=== PATIENT | male | born 1965 | race Caucasian/White ===

== ENCOUNTER 2017-01-03 07:33 | Inpatient (IN) | payer OTHER ==
[~2017-01-03] VITALS: Ht 185.4 cm; Wt 78.3 kg
[2017-01-03] VITALS (426 sets, daily range): BP systolic 109–136; BP diastolic 63–86; PULSE 83–109; TEMP 97.5–98.4; O2SAT 98–100
[2017-01-03 07:59] LABS: BASO # 0.1 (0.0-0.2); BASO % 1.3 % (0.0-2.0); EOS # 0.2 (0.0-0.7); GRAN # 6.3 (1.4-6.5); GRAN % 65.8 % (42.2-75.2); HEMATOCRIT 48.7 % (42.0-52.0); HEMOGLOBIN 17.3 g/dl (13.5-18.0); LYMPH # 2.4 (1.2-3.4); LYMPH % 25.1 % (20.0-51.0); MEAN CELL VOLUME 84 fl (80.0-100.0); MEAN CORPUSCULAR HEMOGLOBIN 30 pg (27.0-31.0); MEAN CORPUSCULAR HGB CONC 36 g/dl (33.0-37.0); MONO # 0.5 (0.1-0.6); MONO % 5.6 % (1.7-9.3); PLATELET COUNT 256 K/mm3 (130-400); RED BLOOD COUNT 5.82 M/mm3 (4.20-5.60); REDCELL DISTRIBUTION WIDTH-CV 12.5 % (11.5-14.5); WHITE BLOOD COUNT 9.6 K/mm3 (4.8-10.8)
[2017-01-03 08:17] LABS: ADJUSTED CALCIUM 9.2 mg/dL (8.4-10.2); ALANINE AMINOTRANSFERASE 28 U/L (21-72); ALBUMIN 4.4 gm/dL (3.5-5.0); ALKALINE PHOSPHATASE 64 U/L (50-136); ANION GAP 21 mmol/L (7-16); BILIRUBIN,TOTAL 1.3 mg/dL (0.0-1.0); BLOOD UREA NITROGEN 26 mg/dL (9-20); CALCIUM 9.5 mg/dL (8.4-10.2); CARBON DIOXIDE 18 mmol/L (22-30); CHLORIDE 93 mmol/L (98-107); CREATININE, serum 0.81 mg/dL (0.66-1.25); MAGNESIUM 1.7 mg/dL (1.6-2.3); PHOSPHOROUS 3.1 mg/dL (2.5-4.5); POTASSIUM 3.9 mmol/L (3.4-5.0); SODIUM 133 mmol/L (137-145); TOTAL PROTEIN 7.1 gm/dL (6.4-8.2)
[2017-01-03 08:18] LABS: ARTERIAL BLD GAS O2 SATURATION 96.5 % (92-100); ARTERIAL BLD GAS TCO2 CT 17.1; ARTERIAL BLOOD GAS HCO3 16.3 meq/L (22-26); ARTERIAL BLOOD GAS PO2 93.7 mmHg (80-100); ARTERIAL BLOOD GAS pH 7.38 (7.35-7.45); OXYHEMOGLOBIN 93.5 %
[2017-01-03 08:19] LABS: ALLEN TEST YES; ALLENS TEST RESULT PASS; ATS? YES
[2017-01-03 08:20] LABS: GLUCOSE 606 mg/dL (74-106)
[2017-01-03 08:28] LABS: B-TYPE NATRIURETIC PEPTIDE 924 pg/mL (0-125)
[2017-01-03 08:33] LABS: TROPONIN-I < 0.012 ng/mL (0.000-0.034)
[2017-01-03 09:42] LABS: PH 5 (5-8); SQUAMOUS EPITHELIAL 0-2 /hpf; URINE APPEARANCE Clear; URINE BACTERIA None Seen /hpf; URINE BILIRUBIN Negative (NEGATIVE); URINE BLOOD Negative (NEGATIVE); URINE COLOR Yellow; URINE GLUCOSE 3+ (NEGATIVE); URINE KETONE 1+ (NEGATIVE); URINE RBC 0-2 /hpf; URINE UROBILINOGEN Negative (NEGATIVE); URINE WBC 0-2 /hpf
[2017-01-03 11:28] LABS: CALCIUM 8.7 mg/dL (8.4-10.2); CREATININE, serum 0.68 mg/dL (0.66-1.25); POTASSIUM 4.2 mmol/L (3.4-5.0)
[2017-01-03 14:11] LABS: CALCIUM 8.2 mg/dL (8.4-10.2); CREATININE, serum 0.66 mg/dL (0.66-1.25); POTASSIUM 3.9 mmol/L (3.4-5.0)
[2017-01-03 16:16] LABS: CREATININE, serum 0.65 mg/dL (0.66-1.25); POTASSIUM 3.8 mmol/L (3.4-5.0)
[2017-01-03 20:45] LABS: AMPHETAMINE URINE NEGATIVE; BARBITURATES URINE NEGATIVE; BENZODIAZEPINES URINE NEGATIVE; BUPRENORPHINE URINE NEGATIVE; METHADONE URINE NEGATIVE; OPIATES URINE NEGATIVE; OXYCODONE URINE NEGATIVE; PHENCYCLIDINE URINE NEGATIVE; PROPOXYPHENE URINE NEGATIVE
[2017-01-03 20:46] LABS: THC CANNABINOIDS URINE NEGATIVE
[2017-01-04 03:17] VITALS: BP 151/87; PULSE 83; TEMP 98.5
[2017-01-04 08:06] VITALS: BP 140/90; PULSE 91; TEMP 98.6
[2017-01-04 11:22] VITALS: BP 158/90; PULSE 90; TEMP 98.3
[2017-01-04] MEDS ORDERED: GLUCOPHAGE500 MG/TAB PO (12:47)
[2017-01-04] MEDS ORDERED: LEVEMIR100 U/ML SQ (12:48)
== END 2017-01-04 14:13 | disposition home or self-care (01) | DRG 638 ==
LOC: COL.ER 07:33 → ICU 08:56 → MEDICAL 08:56
PROVIDERS: Emergency Medicine; Internal Medicine
DX: E13.10 Other specified diabetes mellitus with ketoacidosis without coma (principal); I47.1 Supraventricular tachycardia; E87.1 Hypo-osmolality and hyponatremia; Z66 Do not resuscitate; F17.210 Nicotine dependence, cigarettes, uncomplicated; E11.40 Type 2 diabetes mellitus with diabetic neuropathy, unspecified
CPT/HCPCS: 99223-AI; 99239; J1650; J1815; J7030